=== PATIENT | male | born 1960 | race Caucasian/White ===

== ENCOUNTER 2016-10-09 11:39 | Day surgery (SDC) | payer MEDICAID ==
[~2016-10-09 11:39] MED LIST: AMBIEN5 M1 PO; IBUPROFEN200 M2 PO; MULTIVITAMINS1 EAC6 PO; NEURONTIN300 M1 PO; TOPROL XL50 M1 PO; XARELTO20 M1 PO
== END 2016-10-09 12:30 ==
LOC: US 11:39 → SHSC 11:40
DX: R10.9 Unspecified abdominal pain (principal); B18.2 Chronic viral hepatitis C; R63.5 Abnormal weight gain; I10 Essential (primary) hypertension; I48.91 Unspecified atrial fibrillation; F17.210 Nicotine dependence, cigarettes, uncomplicated; F10.10 Alcohol abuse, uncomplicated; Z79.01 Long term (current) use of anticoagulants; Z79.899 Other long term (current) drug therapy; Z87.01 Personal history of pneumonia (recurrent); Z83.71 Family history of colonic polyps; Z90.49 Acquired absence of other specified parts of digestive tract; Z98.890 Other specified postprocedural states